=== PATIENT | female | born 1985 | race Hispanic/Latino ===

== ENCOUNTER 2017-11-22 06:57 | Emergency (ER) | payer BC ==
[2017-11-22 07:11] VITALS: RESP 16; TEMP 98
--- NOTE | 2017-11-22 07:17 | ED PDOC ---
HPI: Female Pain Chief Complaint (Provider): Vaginal bleeding History Per: Patient History/Exam Limitations: no limitations Onset/Duration Of Symptoms: Days Current Symptoms Are (Timing): Still Present Pain Scale Rating Of: 3 Quality Of Discomfort: "Pain", Gas Associated Symptoms: Nausea. denies: Fever, Chills, Vomiting, Diarrhea, Back Pain Additional Complaint(s): 32 y/o female at 7 weeks of GA with no significant PMHx presents complaining of vaginal bleeding. Patient states that since Tuesday last week she has been having vaginal spotting, but since yesterday started been getting worse with jaylen bleeding , associated with pelvic crampy pain, gas sensation, nausea without vomiting, and dizziness. FUR BLENDER/OB : Dr. Warner <Aracely Veras - Last Filed: 11/22/17 09:46> <Mari Zaman - Last Filed: 11/24/17 06:36> Time Seen by Provider: 11/22/17 07:13 Chief Complaint (Nursing): Female Genitourinary Supervising Attending Note - Supervising Attending Note The Documented history was done by the: Physician S Iron Worker The documented physical exam was done by the: Physician S Iron Worker The documented procedures were done by the: Physician S Iron Worker - Attestation: I have personally seen and examined this patient.: Yes I have fully participated in the care of the patient.: Yes I have reviewed all pertinent clinical information, including history, physical exam and plan: Yes <Mari Zaman Y - Last Filed: 11/24/17 06:36> Past Medical History Vital Signs: Last Vital Signs Temp 98.0 F 11/22/17 07:05 Pulse 68 11/22/17 07:05 Resp 16 11/22/17 07:05 BP 106/72 11/22/17 07:05 Pulse Ox 99 11/22/17 07:05 - Medical History PMH: No Chronic Diseases - Surgical History Other surgeries: Bluejacket tooth removal - Family History Family History: States: No Known Family Hx - Living Arrangements Living Arrangements: With Family - Social History Current smoker - smoking cessation education provided: No Ex-Smoker (has not smoked in the last 12 months): No Alcohol: None Drugs: Denies <Aracely Veras - Last Filed: 11/22/17 09:46> Vital Signs: Last Vital Signs Temp 98.0 F 11/22/17 07:05 Pulse 75 11/22/17 09:44 Resp 16 11/22/17 09:44 BP 125/80 11/22/17 09:44 Pulse Ox 99 11/22/17 09:48 <Mari Zaman Y - Last Filed: 11/24/17 06:36> - Home Medications Home Medications: Ambulatory Orders Medication Instructions Recorded Nitrofurantoin Macrocrystals 100 mg PO BID #14 cap 11/22/17 [Macrobid] - Allergies Allergies/Adverse Reactions: Allergies Allergy/AdvReac Type Severity Reaction Status Date / Time No Known Allergies Allergy Verified 11/22/17 07:10 Review of Systems ROS Statement: Except As Marked, All Systems Reviewed And Found Negative (as per HPI) <Aracely Veras - Last Filed: 11/22/17 09:46> Physical Exam - Reviewed Nursing Documentation Reviewed: Yes Vital Signs Reviewed: Yes - Physical Exam Appears: Positive for: Non-toxic, No Acute Distress Head Exam: Positive for: ATRAUMATIC, NORMOCEPHALIC Skin: Positive for: Normal Color, Warm, Dry Cardiovascular/Chest: Positive for: Regular Rate, Rhythm. Negative for: Edema, Murmur, Bradycardia, Tachycardia Respiratory: Positive for: Normal Breath Sounds. Negative for: Decreased Breath Sounds, Accessory Muscle Use, Crackles, Rales, Rhonchi, Stridor, Wheezing , Respiratory Distress Gastrointestinal/Abdominal: Positive for: Bowel Sounds, Soft, Tenderness (mild tenderness to palpation of suprapubic area). Negative for: Distended, Guarding , Rebound Pelvic Exam: Positive for: External Exam Normal, No Cerv. Motion Tender, Blood, Other (Water Purification Chemist in room. Moderate amount of blood in vaginal vault in speculum exam, but no evidence of active bledding at this time. Cervix soft, and closed. ). Negative for: Active Bleeding Back: Positive for: Normal Inspection. Negative for: L CVA Tenderness, R CVA Tenderness Extremity: Negative for: Pedal Edema, Calf Tenderness Neurologic/Psych: Positive for: Alert, Oriented <Aracely Veras - Last Filed: 11/22/17 09:46> - Laboratory Results Result Diagrams: 11/22/17 07:44 11/22/17 07:44 - ECG O2 Sat by Pulse Oximetry: 99 <Aracely Veras - Last Filed: 11/22/17 09:46> - Laboratory Results Result Diagrams: 11/22/17 07:44 11/22/17 07:44 <Mari Zaman - Last Filed: 11/24/17 06:36> Medical Decision Making Medical Decision Making: Vaginal bleeding in -Possible Threatened miscarriage -CBC, CMP -Type and screen -Beta HCG -UA -OB US -case discussed with Dr. Zaman -re-evaluation Re-evaluation -CBC, CMP WNL -Beta HCG correlates with 7 weeks -Blood group : A positive -UA positive for WBC, leukocyte est, occ bacteria -OB US rreporte IMPRESSION: Single viable twin intrauterine gestation. Fetus stay has average ultrasound age of 6 weeks, 3 days with heart rate 115 beats per minute. speed has average ultrasound age of 6 weeks, 3 days with heart rate 119 beats per minute. Cervix long and closed. Small subchorionic hemorrhage. Complex structure in the left adnexa with solid, cystic and echogenic areas measuring 6.6 x 4.9 x 6.1 cm which may possibly represent an ovarian dermoid. Patient stable to be discharge home with strongly recommended f/u with BRANCH ASSISTANT. Macrobid BID x 7 days for UTI. Work excused given Case discussed with Dr. Zaman <Aracely Veras - Last Filed: 11/22/17 09:46> Disposition - Patient ED Disposition Is Patient to be Admitted: No Discussed With : Mari Zaman - Disposition Disposition: Routine/Home Disposition Time: 09:45 <Aracely Veras - Last Filed: 11/22/17 09:46> <Mari Zaman - Last Filed: 11/24/17 06:36> - Clinical Impression Clinical Impression: Urinary tract infection, Threatened - Disposition Referrals: Judith Franklin MD [Primary Care Provider] - Condition: IMPROVED Additional Instructions: follow up with your primary community liaison officer in 2 days return to the ED with any worsening or concerning symptoms Prescriptions: Nitrofurantoin Macrocrystals [Macrobid] 100 mg PO BID #14 cap Instructions: Urinary Tract Infection, Adult (DC), Threatened Miscarriage (DC) Forms: [facility] ([place]), [facility] ED School/Work Excuse
[2017-11-22 07:51] LABS: BASO % 0.3 % (0.0-2.0); EOS # 0.1 K/uL (0.0-0.7); HEMOGLOBIN 13.9 g/dL (12.0-16.0); LYMPH # 1.7 K/uL (1.0-4.3); LYMPH % 27.6 % (20.0-40.0); MEAN CELL VOLUME 85.4 fl (81.0-99.0); MEAN CORPUSCULAR HEMOGLOBIN 29.6 pg (27.0-31.0); MEAN CORPUSCULAR HGB CONC 34.7 g/dL (33.0-37.0); MEAN PLATELET VOLUME 8.8 fl (7.2-11.7); MONO # 0.6 K/uL (0.0-0.8); MONO % 9.5 % (0.0-10.0); NEUT # 3.7 K/uL (1.8-7.0); NEUT % 61.6 % (50.0-75.0); RBC 4.7 Mil/uL (3.80-5.20); RED CELL DISTRIBUTION WIDTH 13.6 % (11.5-14.5)
[2017-11-22 08:01] LABS: ALB/GLOB RATIO 1.3 (1.0-2.1); AST/SGOT 23 U/L (14-36); BLOOD UREA NITROGEN 7 mg/dl (7-17); CALCIUM 9.3 mg/dL (8.4-10.2); GFR AFRICAN-AMERICAN > 60; GFR NON-AFRICAN AMERICAN > 60
[2017-11-22 08:08] LABS: ALT/SGPT 48 U/L (9-52)
[2017-11-22 08:12] LABS: SQUAMOUS EPITHIAL 12 /hpf (0-5); URINE BACTERIA OCC (<OCC); URINE BILIRUBIN NEGATIVE (NEGATIVE); URINE BLOOD LARGE (NEGATIVE); URINE CLARITY TURBID (Clear); URINE COLOR YELLOW (YELLOW); URINE GLUCOSE (UA) NEG (Normal); URINE LEUKOCYTE ESTERASE TRACE Leu/uL (Negative); URINE PROTEIN 30 mg/dL (NEGATIVE); URINE UROBILINOGEN 0.2-1.0 mg/dL (0.2-1.0)
[2017-11-22 08:13] LABS: URINE AMORPHOUS SEDIMENT MODERATE /ul (<OCC)
--- NOTE | 2017-11-22 09:22 | US ---
PROCEDURE: OB Pelvic Ultrasound HISTORY: vag bleeding LMP: 10/04/2017 COMPARISON: None available. FINDINGS: UTERUS: Twin intrauterine gestation. Fetus a: Gestational sac: Mean sac diameter measures 2.2 cm compatible with estimated gestational age of 6 weeks, 6 days Yolk sac: Measures 0.5 cm pole: [place]-rump length measures 0.6 cm compatible with estimated gestational age of 6 weeks, 3 days heart rate: 115 beats per minute Fetus B: Gestational sac: Mean sac diameter measures 2.0 cm compatible with estimated gestational age of 6 weeks, 4 days Yolk sac: Measures 0.5 cm pole: [place]-rump length measures 0.6 cm compatible with estimated gestational age of 6 weeks, 3 days Heart rate: 119 bpm. age (Ultrasound estimated): 6 weeks, 3 days Ber[place]-gestational hemorrhage: Small subchorionic hemorrhage measuring 1.3 x 0.8 x 0.3 cm. Date of delivery (Ultrasound estimated) : 07/15/2018 Uterus measures 9.4 x 7.0 x 6.1 cm. Anteverted. Normal in size and appearance. CERVIX: Measures 4.3 cm. Long and closed. No cervical abnormality seen. RIGHT OVARY: Measures 2.8 x 1.3 x 2.1 cm. No mass lesion. Normal flow. LEFT OVARY: Complex structure in the left adnexa measuring 6.6 x 4.9 x 6.1 cm with solid, cystic and echogenic areas. FREE FLUID: None. OTHER FINDINGS: None. IMPRESSION: Single viable twin intrauterine gestation. Fetus stay has average ultrasound age of 6 weeks, 3 days with heart rate 115 beats per minute. speed has average ultrasound age of 6 weeks, 3 days with heart rate 119 beats per minute. Cervix long and closed. Small subchorionic hemorrhage. Complex structure in the left adnexa with solid, cystic and echogenic areas measuring 6.6 x 4.9 x 6.1 cm which may possibly represent an ovarian dermoid.
[2017-11-22 09:44] VITALS: BP 125/80; PULSE 75; O2SAT 99
== END 2017-11-22 09:55 | disposition home or self-care (01) ==
LOC: H.ER 06:57
DX: O20.0 Threatened abortion (principal); O23.40 Unspecified infection of urinary tract in pregnancy, unspecified trimester

== ENCOUNTER 2018-04-18 21:15 | Emergency (ER) | payer BC ==
[2018-04-19 06:45] VITALS: BP 104/74; PULSE 84
--- NOTE | 2018-04-19 08:37 | OBDCSUM ---
Datetime: 04/18/2018 22:27 Discharged to, Provider: Home Follow up at, Provider: Disch Instr Activity: Normal activity Disch Instr Diet: Regular Discharge Time: 04/18/2018 22:28 Follow up in weeks, Provider: 05/01/2018 Disch Referrals: None Disch Activity Restrictions: No lifting Discharge Comment, Provider: other name Denise (JIMMY) Discharge Diagnosis Prov Other: Decreased movement
--- NOTE | 2018-04-19 08:37 | OBHP ---
Datetime: 04/18/2018 22:12 IP Adm Impression: , intrauterine ; Intact Membranes IP Admit Plan: Observation/Evaluation Admit Comment, IP Provider: 32 y/o G1PO @ 27.3wks based on 1st trimester ultrasound, LMP 10/04/2017 p resented with c/o decreased FM today. She reports fetus is usually more active, and noticed less move ment throughout the day as well as during her class. She denied vg, ctx or loss of fluid. Denies any f/v/n, dysuria, cp or sob. OBGYNhx: denied PMH: Hosp October 2011 after fainting Meds: PNV Allergies: mangoes-hives Famhx: noncontributory Sochx: denied tobacco, EtOH or drug use ROS: all 12 points reviewed _ neg unless otherwise stated in HPI VS: 104/74, Pulse-84bpm Spo2-99% RR- 16 Gen: sitting upright in bed, breathing confortably Cardio: s1s2 RRR, no murmurs Resp: cta, b/l Abd: Gravid, BS+, nontender Ext: nonedematous, distal pulses symmetrical _ intact A/P: 32 y/o G1PO @ 27.3wks based on 1st trimester ultrasound, LMP 10/04/2017 presented with c/o dec reased FM today. 1. NST reactive with patient reporting + FM. Discharge home with precautions on decreased FM. Patient seen and examined with Dr. Ita Landa, , PGY-1 OB Hospitalist on-call...With PGY1, I saw this patinet. She was brought to [facility] by Keli (mikel novoa) after discussing FM today. When she was placed on the monitor, she felt +FM and was relie jose. She will follow up with PMD as scheduled MAHNDO Extremities - PN: Normal Abdomen - PN: Normal Lungs - PN: Normal Heart - PN: Normal General - PN: Normal FHR - Baseline A Provider: 138 Gestation - Est Wks by US: 27.3 IP Hx Assessment: The History has been Reviewed and is Current EGA AdmitDate IP: 27.2 Vital Signs Provider: Reviewed; Within Normal Limits IP Chief Complaint: Decreased movement NICHD Variability Prov Fetus A: Moderate 6-25bpm NICHD Accel Fetus A IP Provider: 15X15 FHR Category Provider Fetus A: Category I NICHD Decel Fetus A IP Provider: None
== END 2018-04-18 22:45 | disposition home or self-care (01) ==
LOC: H.EROB2 21:15
DX: O36.8130 Decreased fetal movements, third trimester, not applicable or unspecified (principal); Z3A.27 27 weeks gestation of pregnancy

== ENCOUNTER 2018-07-04 08:23 | Emergency (ER) | payer BC ==
[2018-07-04 08:51] VITALS: BMI 25.5
[2018-07-04 14:12] VITALS: BP 114/74; PULSE 71; RESP 18; TEMP 98.1
== END 2018-07-04 09:34 | disposition home or self-care (01) ==
LOC: H.EROB2 08:23
DX: O34.63 Maternal care for abnormality of vagina, third trimester (principal); N89.8 Other specified noninflammatory disorders of vagina; Z3A.38 38 weeks gestation of pregnancy; O47.1 False labor at or after 37 completed weeks of gestation

== ENCOUNTER 2018-07-05 03:55 | Emergency (ER) | payer BC ==
[2018-07-04 08:51] VITALS: BMI 25.5
--- NOTE | 2018-07-05 08:06 | OBHP ---
Datetime: 07/05/2018 04:23 IP Adm Impression: Term, intrauterine ; No Active Labor; Intact Membranes IP Admit Plan: Observation/Evaluation Admit Comment, IP Provider: 32 y/o female @ 38.3 wk GA based on 1st trimester ultrasound, LMP presents to [facility] w/ CTx. CTx are q3 to 5 mins. She denies vaginal bleed. Endorses move ment. Denies any f/v/n, dysuria, cp or sob. Patient was seen yesterday in [facility] for LOF with Negative pooling and was D/C home with labor preca utions. OB: Dr. Warner OBGYNhx: denies hx of STDs PMH: GDM Meds: PNV, Metformin 500mg PO QD Allergies: mangoes-hives Famhx: noncontributory Sochx: denied tobacco, EtOH or drug use ROS negative except per HPI Gen: sitting upright in bed, breathing confortably Cardio: s1s2 RRR, no murmurs Resp: cta, b/l Abd: Gravid, BS+, nontender Ext: no swelling/erythema/tenderness SVE: Fingertip Assessment and Plan: 32 y/o female w/ hx of GDM @ 38.3 wks IUP NST reactive with patient reporting + FM. SVE: Fingertip long thick(Done by Dr. Jean Baptiste) Observation CTx Q5 mins, Not in active labor 7:50AM: Patient seen and examined. Patient to be discharged home with labor procautions provided. Patient to F/U with Dr. Warner for follow up. Case discussed w/ Dr. Ita Hernández, PGY1 OB Hospitalist note: With PGY1, I saw and examined this patient. SVE FT-1cm no cervical change Ag ree with note MAHNDO Pelvic Type - PN: Not Done Extremities - PN: Normal Abdomen - PN: Normal Back - PN: Not Done Breast - PN: Not Done Lungs - PN: Normal Heart - PN: Normal Thyroid - PN: Not Done Neurologic - PN: Normal HEENT - PN: Not Done General - PN: Normal IP Hx Assessment: The History has been Reviewed and is Current IP Chief Complaint: Uterine contractions Genitourinary Exam: Normal DTRs - PN: Not Done Datetime: 07/04/2018 08:30 FHR - Baseline A Provider: 130 Membranes, Provider: Intact Gestation - Est Wks by US: 38.2 Pool Provider: Negative Ferning Provider: Negative EGA AdmitDate IP: 38.2 Vital Signs Provider: Reviewed; Within Normal Limits NICHD Variability Prov Fetus A: Moderate 6-25bpm NICHD Accel Fetus A IP Provider: 15X15 FHR Category Provider Fetus A: Category I NICHD Decel Fetus A IP Provider: None Dilatation, Provider: FT
--- NOTE | 2018-07-05 08:09 | OBDCSUM ---
Datetime: 07/05/2018 07:38 Discharged to, Provider: Home Follow up at, Provider: OBMD Disch Instr Activity: Normal activity; Bedrest; May be up to bathroom; May be up for meals; May Show er Disch Instr Diet: Regular Discharge Diagnosis, Provider: False Labor - Undelivered Discharge Time: 07/05/2018 07:39 Follow up in weeks, Provider: 1w Disch Referrals: None Datetime: 07/04/2018 09:32 Discharge Diagnosis, Provider: False Labor - Undelivered
[2018-07-05 12:59] VITALS: BP 119/76; PULSE 76; RESP 18; O2SAT 99
== END 2018-07-05 08:10 | disposition home or self-care (01) ==
LOC: H.EROB2 03:55
DX: O26.93 Pregnancy related conditions, unspecified, third trimester (principal); R10.2 Pelvic and perineal pain; Z3A.38 38 weeks gestation of pregnancy

== ENCOUNTER 2018-07-06 00:32 | Inpatient (IN) | payer BC ==
[2018-07-06 01:35] VITALS: BMI 25.7
[2018-07-06] MEDS ORDERED: Lactated Ringer's 1,000 ML IV SCH ×4 (01:45→19:51)
[2018-07-06] MEDS ORDERED: Lactated Ringer's 1,000 ML IV ONE (02:41)
[2018-07-06 03:19] LABS: BASO % 0.2 % (0.0-2.0); EOS # 0.1 K/uL (0.0-0.7); EOS % 0.8 % (0.0-4.0); HEMOGLOBIN 12.1 g/dL (12.0-16.0); LYMPH # 1.9 K/uL (1.0-4.3); MEAN CELL VOLUME 84.1 fl (81.0-99.0); MEAN CORPUSCULAR HEMOGLOBIN 26.6 pg (27.0-31.0); MEAN CORPUSCULAR HGB CONC 31.7 g/dL (33.0-37.0); MEAN PLATELET VOLUME 9.3 fl (7.2-11.7); MONO # 0.9 K/uL (0.0-0.8); NEUT # 7.4 K/uL (1.8-7.0); RBC 4.54 Mil/uL (3.80-5.20); RED CELL DISTRIBUTION WIDTH 14.7 % (11.5-14.5); WHITE BLOOD COUNT 10.3 K/uL (4.8-10.8)
[2018-07-06] MEDS ORDERED: Fentanyl/Bupivacaine HCl 250 ML EPI ONE (03:24)
[2018-07-06] MEDS ORDERED: Oxytocin 30 UNIT 30 UNITS/500 ML BAG IV ONE (03:27)
[2018-07-06] MEDS ORDERED: OXYTOCIN/0.9 % NS 20 UNIT/1,000 ML BAG IV SCH (03:30)
[2018-07-06 03:42] VITALS: RESP 18
[2018-07-06 03:51] LABS: ALB/GLOB RATIO 0.9 (1.0-2.1); ALBUMIN 3.1 g/dL (3.5-5.0); ALT/SGPT 19 U/L (9-52); AST/SGOT 23 U/L (14-36); BLOOD UREA NITROGEN 16 mg/dl (7-17); CALCIUM 8.8 mg/dL (8.4-10.2); GFR NON-AFRICAN AMERICAN > 60
[2018-07-06] MEDS ORDERED: Lidocaine 1% Inj (20ml) ONE (12:03)
[2018-07-06] MEDS ORDERED: Lidocaine 2% Inj (20ml) IJ ONE (16:33)
[2018-07-06] MEDS ORDERED: Benzocaine/Menthol SPRAY TOP PRN ×2 (16:34→19:51)
[2018-07-07 06:37] LABS: BASO % 0.2 % (0.0-2.0); EOS # 0.1 K/uL (0.0-0.7); EOS % 0.5 % (0.0-4.0); HEMOGLOBIN 9.8 g/dL (12.0-16.0); LYMPH # 1.5 K/uL (1.0-4.3); LYMPH % 9.9 % (20.0-40.0); MEAN CELL VOLUME 84.8 fl (81.0-99.0); MEAN CORPUSCULAR HEMOGLOBIN 27.1 pg (27.0-31.0); MEAN PLATELET VOLUME 9.1 fl (7.2-11.7); MONO # 1.5 K/uL (0.0-0.8); MONO % 9.8 % (0.0-10.0); NEUT # 12.2 K/uL (1.8-7.0); NEUT % 79.6 % (50.0-75.0); PLATELET COUNT 188 K/uL (130-400); RBC 3.62 Mil/uL (3.80-5.20); RED CELL DISTRIBUTION WIDTH 14.7 % (11.5-14.5); WHITE BLOOD COUNT 15.4 K/uL (4.8-10.8)
[2018-07-07 08:41] LABS: LYMPHOCYTE 12 % (20-50); MONOCYTE 9 % (0-10); NEUTROPHIL 79 % (42-75); PLATELET ESTIMATE NORMAL (NORMAL); TOTAL CELLS COUNTED 100
[2018-07-07 08:42] LABS: ANISOCYTOSIS SLIGHT; GIANT PLATELETS PRESENT; OVALOCYTES SLIGHT
[2018-07-07] MEDS: Multivitamin With Minerals Tab PO SCH (08:56)
[2018-07-07] MEDS ORDERED: Multivitamin With Minerals Tab PO SCH (09:00)
--- NOTE | 2018-07-07 13:39 | OBPPN ---
Datetime: 07/07/2018 13:36 PP Pain Prov: Within normal limits PP Nausea Prov: Denies PP Flatus Prov: Yes PP Breasts Prov: Normal PP Heart Prov: Normal PP Lungs Prov: Normal PP Abdomen/Uterus Prov: Normal PP Lochia Prov: Normal PP Vulva/Perineum Prov: Normal PP CVA Tenderness Prov: Normal PP Extremities Prov: Normal PP Comments Phys Exam Prov: Fundus firm under umbilicus PP Impression Prov: Normal progression PP Plan Prov: Continue present management PP Progress Note Prov: Patient denies CP, no SOB, no N/V, tolerating pO diet, ambulating/voiding wel l, mild lochia, abdominal pain A/P PPD #1 1. COntinue orders, FS cancelled 2. Encourage ambulation/ 3 Percocet/MOtrin prn pain IP PP Procedures: None Vital Signs Provider PP: Reviewed; Within Normal Limits
--- NOTE | 2018-07-07 15:11 | OBDS ---
DELIVERY PERSONNEL Delivery Doctor: Thad Soto MD [place] Worker: Deanne Guerin RN Anesthesiologist: Aishwarya Araiza MD MATERNAL INFORMATION Delivery Anesthesia: Epidural Medications in Delivery: none Estimated Blood Loss (ml): 300 Placenta Cultured: No Maternal Complications: Prolonged Second Stage > 2 Hrs Provider Comments: Normal spontaneous vaginal delivery. Patient delivered a viable with Apgars of 9 and 9 at 1 and 5 minutes respectively. Placent a delivered spontaneously. Laceration repaired, as above. Uterus firm and appropriately hemostatic following delivery. Patient tolerated delivery and repair well. No complications. Estimate blood l oss 300 cc. LABOR SUMMARY EDC: 07/16/2018 00:00 No. Babies in Womb: 1 Attempted: No Labor Anesthesia: Epidural LABOR INFORMATION Reason for Induction: Not Applicable Onset of Labor: 07/05/2018 22:00 Complete Dilatation: 07/06/2018 11:55 Oxytocin: Augmentation Group B Beta Strep: Negative Antibiotics # of Doses: 0 Steroids Given: None Reason Steroids Not Administered: Not Applicable MEMBRANES Membranes Rupture Method: Spontaneous Rupture of Membranes: 07/06/2018 02:30 Length of Rupture (hrs): 13.77 Amniotic Fluid Color: Clear Amniotic Fluid Amount: Moderate Amniotic Fluid Odor: Normal STAGES OF LABOR Stage 1 hrs: 13 Stage 1 min: 55 Stage 2 hrs: 4 Stage 2 min: 21 Stage 3 hrs: 0 Stage 3 min: 10 Total Time in Labor hrs: 18 Total Time in Labor min: 26 VAGINAL DELIVERY Episiotomy: None Laceration Extension: Second Degree Laceration Type: None Laceration Repair: Yes Laceration Repair Note: Second-degree midline perineal laceration. Area infiltrated with 1% lidocai ne laceration repaired with 2.0 repeated without complication. Patient tolerated repair well. Initial Vag Sponge Count: 15 Final Vag Sponge Count: 15 Initial Vag Sharps Count: 2 Final Vag Sharps Count: 2 Sponge Count Correct: Yes Sharps Count Correct: Yes BABY A INFORMATION Delivery Date/Time: 07/06/2018 16:16 Method of Delivery: Vaginal Born in Route : No : N/A Forceps: N/A Vacuum Extraction: N/A Shoulder Dystocia : No SHOULDER DYSTOCIA BABY A Delivery Date/Time: 07/06/2018 16:16 PRESENTATION/POSITION BABY A Presentation: Cephalic Cephalic Presentation: Vertex Breech Presentation: N/A PLACENTA INFORMATION BABY A Placenta Delivery Time : 07/06/2018 16:26 Placenta Method of Delivery: Spontaneous Placenta Status: Delivered SCORES BABY A Heart Rate 1 min: >100 bpm Resp Effort 1 min: Good Cry Reflex Irritability 1 min: Cough or Sneeze or Pulls Away Muscle Tone 1 min: Active Motion Color 1 min: Body [place], Extremities Blue Resuscitation Effort 1 min: N/A SCORE 1 MIN: 9 Heart Rate 5 min: >100 bpm Resp Effort 5 min: Good Cry Reflex Irritability 5 min: Cough or Sneeze or Pulls Away Muscle Tone 5 min: Active Motion Color 5 min: Body [place], Extremities Blue Resuscitation Effort 5 min: N/A SCORE 5 MIN: 9 INFANT INFORMATION BABY A Gestational Age at Delivery: 38.4 Gestational Status: Term Infant Outcome : Liveborn Condition : Stable Sex: Male WEIGHT/LENGTH BABY A Infant Birthweight (gms): 3265 Weight (lb): 7 Infant Weight (oz): 3 CORD INFORMATION BABY A No. Cord Vessels: 3 Nuchal Cord : N/A Infant Suction: Mouth; Nose
--- NOTE | 2018-07-08 08:40 | OBPPN ---
Datetime: 07/08/2018 08:36 PP Pain Prov: Within normal limits PP Nausea Prov: Denies PP Flatus Prov: Yes PP Breasts Prov: Normal PP Heart Prov: Normal PP Lungs Prov: Normal PP Abdomen/Uterus Prov: Normal PP Lochia Prov: Normal PP Vulva/Perineum Prov: Normal PP CVA Tenderness Prov: Normal PP Extremities Prov: Normal PP Comments Phys Exam Prov: Fundus firm under umbilicus PP Impression Prov: Normal progression PP Plan Prov: Continue present management; Discharge PP Progress Note Prov: Patient denies CP, no SOB, no N/V, tolerating PO diet, ambulating/voiding wel l, mild lochia, abdominal pain tolerable with meds A/P PPD #2 1. discharge patient today 2. Discharge instructions reviewed IP PP Procedures: None Vital Signs Provider PP: Reviewed; Within Normal Limits
[2018-07-08] MEDS: Multivitamin With Minerals Tab PO SCH (09:09)
[2018-07-08 23:44] VITALS: BP 112/72; PULSE 80; TEMP 98.1; O2SAT 99
== END 2018-07-08 12:50 | disposition home or self-care (01) | DRG 807 ==
LOC: H.EROB2 00:32 → H.L&D 02:41 → H.OB/GYN 19:50
PROVIDERS: ADMIT Obstetrics & Gynecology Gynecology; ATTEND Obstetrics & Gynecology Gynecology
PROC: 10E0XZZ Delivery of Products of Conception, External Approach (ICD-10-PCS; principal; 2018-07-06)
PROC: 0KQM0ZZ Repair Perineum Muscle, Open Approach (ICD-10-PCS; 2018-07-06)
PROC: 4A1HXCZ Monitoring of Products of Conception, Cardiac Rate, External Approach (ICD-10-PCS; 2018-07-06)
DX: O63.1 Prolonged second stage (of labor) (principal); Z37.0 Single live birth; Z3A.38 38 weeks gestation of pregnancy; O70.1 Second degree perineal laceration during delivery

== ENCOUNTER 2018-07-10 02:09 | Emergency (ER) | payer BC ==
[2018-07-10 02:09] VITALS: BMI 25.7
[2018-07-10] MEDS ORDERED: Sodium Chloride 0.9% 1,000 ML IV STA (04:27)
[2018-07-10] MEDS ORDERED: Morphine 4 MG/ML VIAL IV ONE (04:27)
--- NOTE | 2018-07-10 04:27 | ED PDOC ---
HPI: Headache Time Seen by Provider: 07/10/18 03:20 Chief Complaint (Nursing): Headache Chief Complaint (Provider): Headache History Per: Patient Onset/Duration Of Symptoms: Days Current Symptoms Are (Timing): Still Present Quality: "Pain" Additional Complaint(s): 33 year old female with no significant medical history presents to the ED with a headache since yesterday. Headache has become increasingly worse, prompting ED visit. She also complains of nausea and chills. Pain is only alleviated by laying flat. Patient gave at this hospital 4 days ago and was given an epidural. Offers no other complaints. motrin is not helping the pain. PMD: Dr. Harvey Past Medical History Reviewed: Historical Data, Nursing Documentation, Vital Signs Vital Signs: Last Vital Signs Temp 98.1 F 07/10/18 02:27 Pulse 71 07/10/18 02:27 Resp 20 07/10/18 02:27 BP 137/83 07/10/18 02:27 Pulse Ox 99 07/10/18 02:27 - Medical History PMH: No Chronic Diseases - Surgical History Surgical History: No Surg Hx - Family History Family History: States: No Known Family Hx - Social History Current smoker - smoking cessation education provided: No Alcohol: None - Home Medications Home Medications: Ambulatory Orders Medication Instructions Recorded RX: Multivit/Folic Acid/I 1 tab PO DAILY 07/06/18 [] RX: Ibuprofen [Motrin Tab] 600 mg PO Q6 PRN #20 tab 07/08/18 RX: Multimineral/Multivitamin 1 tab PO DAILY tab 07/08/18 [Therapeutic-M Tab] RX: Sennosides A and B [Senokot 17.2 mg PO HS tab 07/08/18 Tab] - Allergies Allergies/Adverse Reactions: Allergies Allergy/AdvReac Type Severity Reaction Status Date / Time lori Allergy RASH Verified 07/10/18 03:27 Review of Systems ROS Statement: Except As Marked, All Systems Reviewed And Found Negative Constitutional: Positive for: Chills Gastrointestinal: Positive for: Nausea Neurological: Positive for: Headache Physical Exam - Reviewed Nursing Documentation Reviewed: Yes Vital Signs Reviewed: Yes - Physical Exam Appears: Positive for: Non-toxic, No Acute Distress Head Exam: Positive for: ATRAUMATIC, NORMAL INSPECTION, NORMOCEPHALIC Skin: Positive for: Normal Color, Warm, Dry Eye Exam: Positive for: EOMI, Normal appearance, PERRL ENT: Positive for: Normal ENT Inspection Neck: Positive for: Normal, Painless ROM, Supple Cardiovascular/Chest: Positive for: Regular Rate, Rhythm. Negative for: Murmur Respiratory: Positive for: Normal Breath Sounds. Negative for: Respiratory Distress Gastrointestinal/Abdominal: Positive for: Normal Exam, Soft. Negative for: Tenderness Extremity: Positive for: Normal ROM. Negative for: Deformity Neurologic/Psych: Positive for: Alert, Oriented (x 3). Negative for: Motor/Sensory Deficits - ECG O2 Sat by Pulse Oximetry: 99 (RA) Pulse Ox Interpretation: Normal Medical Decision Making Medical Decision Makin:27 Impression: Headache post epidural Initial Plan: --Morphine 4 mg IV --NS IV 999 mls/hr Spoke to anesthesiologist who will see patient in the ED for possible blood patch. 05:09 --Anesthesia is at bedside performing blood patch. after he did proceudre pt f elt completely better. she lay flat for observation in the ER for one hour. --Dr. Jacobson advised patient to drink caffeinated beverages, to lay flat for one hour and avoid heavy lifting for 24 hours. Patient is agreeable to planwill be discharged. Scribe Attestation: Documented by Breonna Walters acting as a scribe for Mari Zaman MD Provider Scribe Attestation: All medical record entries made by the Scribe were at my direction and personally dictated by me. I have reviewed the chart and agree that the record accurately reflects my personal performance of the history, physical exam, medical decision making, and the department course for this patient. I have also personally directed, reviewed, and agree with the discharge instructions and disposition. Disposition - Clinical Impression Clinical Impression: Headache - Patient ED Disposition Is Patient to be Admitted: No Counseled Patient/Family Regarding: Studies Performed, Diagnosis, Need For Followup - Disposition Disposition: Routine/Home Disposition Time: 05:00 Condition: IMPROVED Additional Instructions: no heavy lifting for 24 hours drink highly caffeineated drinks follow up with your doctor in a week unless any worsening or concerning symptoms develop or if headache returns come back to the ER Instructions: Epidural Blood Patch (DC) Forms: [facility] ([place])
[2018-07-10] MEDS ORDERED: Morphine 4 MG/ML VIAL ONE (04:31)
--- NOTE | 2018-07-10 05:40 | CP.PCM.CON ---
History of Present Illness - History of Present Illness History of Present Illness: Procedure Note: Pt seen and examined at bedside in ER. Patient s/p labor epidural 07/06 who presents to ER today with headache. Pt developed severe positional headache 24 hours ago. No relief with fluids, caffeine or motrin. Only relief is laying down. Pt denies fever, illness, photophobia, neck stiffness or pain. Seen by ER doctor who feels headache is a post dural puncture headache. exam: A+O x 3 HEENT: no nuchal rigidity or pain, nomal pupil dilation and EOM chest: clear heart: RRR, nl S1 and S2 neuro: gait normal sensory normal strength normal After consent was obtained. Pt was postioned and draped in a sterile fashion. Epidural performed. Nurses obtained blood draw in a sterile fashion. 20 CC of blood was injected into the epidural space with immediate relief. Pt was told to lay supine for an hour before discharge and once home no heavy lifting for 24 hours and to drink caffeinated beverages. Plan was discussed with patient, ER physician and nurse. Pt told to return to ED if any fevers, nucchal rigidity or pain or headache returns. Kelechi Jacobson. Past Patient History - Past Social History Smoking Status: Never Smoked - PSYCHIATRIC Hx Substance Use: No - SURGICAL HISTORY Hx Surgeries: No Meds Allergies/Adverse Reactions: Allergies Allergy/AdvReac Type Severity Reaction Status Date / Time lori Allergy RASH Verified 07/10/18 03:27 Results - Vital Signs Recent Vital Signs: Last Vital Signs Temp 98.1 F 07/10/18 02:27 Pulse 71 07/10/18 02:27 Resp 20 07/10/18 02:27 BP 137/83 07/10/18 02:27 Pulse Ox 99 07/10/18 05:18
[2018-07-10 06:57] VITALS: BP 114/61; PULSE 65; RESP 16; TEMP 98
[2018-07-11 04:27] VITALS: O2SAT 99
== END 2018-07-10 06:55 | disposition home or self-care (01) ==
LOC: H.ER 02:09
DX: R51 Headache (principal)
CPT/HCPCS: 96374; 99284; J2270; J7030